=== PATIENT | female | born 1935 | race Caucasian/White ===

== ENCOUNTER 2018-11-06 10:05 | Emergency (ER) | payer OTHER ==
[~2018-11-06] VITALS: Ht 160 cm; Wt 46.7 kg
--- NOTE | 2018-11-06 10:54 | EKG ---
[place] [address] [employer] [facility] [employer] [place] [address] ELECTROCARDIOGRAM REPORT Name: ELENI ISIDRO Room #: PRE [facility]..#: [id number] Admission: Attend Phys: Discharge: Date of : 33 Report #: [id number] THIS REPORT FOR: //name// [facility] ED Test Date: 2018-11-06 Test Time: 10:17:26 Pat Name: ELENI ISIDRO Department: Room: Gender: F Coroner Forensic Technician: : [id number] Requested By: Bandar Sharpe Order Number: [id number] MD: Altaf Ramirez Measurements Intervals [place] Rate: 70 P: -17 TN: 124 QRS: -12 QRSD: 104 T: 72 QT: 379 QTc: 409 Interpretive Statements Sinus rhythm Atrial premature complex Inferior infarct, old No previous ECG available for comparison Electronically Signed On 11-06-2018 10:54:15 [facility] by Altaf Ramirez [email or web address] <ELECTRONICALLY SIGNED> By: Altaf Ramirez MD, [facility] 11/06/18 1054 [id number] Altaf Ramirez MD, FACC /EPI
[2018-11-06 11:20] LABS: ABSOLUTE NEUTROPHILS 6.7 thou/uL (1.4-8.2); BASOPHILS 0.6 % (0.0-2.0); EOSINOPHILS 0.1 % (0.0-3.0); HEMATOCRIT 30.5 % (37.0-47.0); HEMOGLOBIN 10.3 gm/dL (12.0-15.0); LYMPHOCYTES 7.7 % (24.0-44.0); MCH 29.6 pg (26.0-34.0); MCHC 33.8 g/dL (28.0-37.0); MCV 87.5 fL (80.0-100.0); MONOCYTES 9.8 % (1.0-8.0); PLATELET COUNT 194 thou/uL (150-400); POLYS 81.8 % (36.0-66.0); RBC 3.48 mil/uL (4.20-5.00); RDW 14.8 % (10.5-14.5); WBC 8.2 thou/uL (4.0-11.0)
[2018-11-06 11:27] LABS: ANION GAP 10 mmol/L (7-16); BUN 13 mg/dL (7-18); CALCIUM 8.8 mg/dL (8.5-10.1); CHLORIDE 96 mmol/L (98-107); CO2 24 mmol/L (21-32); GLUCOSE 98 mg/dL (74-106); SODIUM 130 mmol/L (136-145)
[2018-11-06 11:36] LABS: ALBUMIN 2.5 g/dL (3.4-5.0); SGOT 15 U/L (15-37); SGPT 14 U/L (30-65); TOTAL BILIRUBIN 0.5 mg/dL (<0.1-1.0); TOTAL PROTEIN 6.2 g/dL (6.4-8.2); TROPONIN-I <0.06 ng/mL (<0.06)
[2018-11-06 12:38] LABS: ICTOTEST (BILI CONFIRMATORY) Negative (Negative); URINE BILIRUBIN NEGATIVE (Negative); URINE BLOOD NEGATIVE (Negative); URINE CLARITY CLEAR; URINE COLOR YELLOW; URINE GLUCOSE-RANDOM* NEGATIVE (Negative); URINE KETONES 1+ (Negative); URINE NITRITE-REFLEX NEGATIVE (Negative); URINE PROTEIN (DIPSTICK) NEGATIVE (Negative); URINE SPECIFIC GRAVITY 1.025 (1.005-1.035)
[2018-11-06 12:39] LABS: URINE LEUKOCYTES-REFLEX NEGATIVE (Negative)
[2018-11-06 13:58] VITALS: BP 116/50
== END 2018-11-06 13:59 ==
LOC: ER 10:05
PROVIDERS: Physician Assistant
DX: S00.81XA Abrasion of other part of head, initial encounter (principal); R42 Dizziness and giddiness; Z88.5 Allergy status to narcotic agent; Z88.2 Allergy status to sulfonamides; Z87.891 Personal history of nicotine dependence; W19.XXXA Unspecified fall, initial encounter; Y93.89 Activity, other specified; Y92.89 Other specified places as the place of occurrence of the external cause; Y99.8 Other external cause status